=== PATIENT | female | born 1940 | race Caucasian/White ===

== ENCOUNTER → 2018-03-12 | Outpatient (CLI) | payer OTHER | LOC: BHFA 14:00 | PROVIDERS: ATTEND Internal Medicine Cardiovascular Disease | DX: R07.9 Chest pain, unspecified (principal) | CPT/HCPCS: 78452; 93017; A9500 ==

== ENCOUNTER → 2018-03-21 | Outpatient (CLI) | payer OTHER | LOC: FIMAGING 14:40 | PROVIDERS: ATTEND Internal Medicine Geriatric Medicine | DX: Z12.31 Encounter for screening mammogram for malignant neoplasm of breast (principal) ==

== ENCOUNTER 2018-05-28 23:19 | Emergency (ER) | payer OTHER ==
--- NOTE | 2018-05-28 23:54 | EDPHY ---
H & P Stated Complaint: c/o intermittent chest l arm pain x 2 months Time Seen by Provider: 05/28/18 23:28 HPI/ROS: CHIEF COMPLAINT: Episode of chest discomfort along with nausea and impending doom HISTORY OF PRESENT ILLNESS: This is a 78-year-old female whose had intermittent pains of an achy like quality in the left chest underneath the breast for the last 3 months. On occasions it will also radiate to the left scapula, though that is far less common. In the last month she has noted no change in her usual exercise tolerance. She was seen by her PCP for this discomfort to some 2 months ago at which time a stress test was performed. It appears to be a nuclear stress test by both the patient's description and the notation in the records of a nuclear stress test being performed on March 13. However I am unable to get the information from that. Likewise I am unable to look at an old EKG. She does recall running on the treadmill rather than having an injection. She met with her physician and was told that if the discomfort occurred with exertion she should be notified. That was not the case until bud. She reports that she was on her elliptical at about 5:30 p.m. And by 6:00 p.m. When she was just about to stop as per her schedule, she has had a sense of much more severe pain, by far and away the worst, into the left shoulder blade as well as the left upper chest without radiation. There is no involvement of the arm or jaw or mid scapular - it was only in the left scapula. While there is no diaphoresis there was a sense of impending doom and nausea. The symptoms subsided over the next hour to 2. She finally decided to come here to get evaluated. At this point time she is feeling asymptomatic, except for the left upper chest ache that she has been dealing with on and more or less and every other day routine for the last 4 months. P: Achiness to the left chest and into the scapula, precipitated by exercise on the elliptical Q: Achiness R: Left upper chest radiating to the left scapula S: Moderate to severe T: Onset today at 5:30 p.m. with resolution over the next hour to 2 - she did not take any aspirin. Cardiovascular risk factors include: Diabetes-hemoglobin A1c was 6.6 recently, she is to have a visit to start treatment this next week Cholesterol is 230-she has been in the past chosen to decline statins Hypertension-evidently while on lisinopril her blood pressure was "normal". Thus a discussion with her PCP as to whether she needs any treatment. However she has noted herself that her home testing is 130-140 systolic. PE risk factors include age. She has never had a DVT or PE before. No recent surgery. No family history of hypercoagulable syndromes. This pain is nonpleuritic. Aortic dissection risk factors: She does not have any known aortic valve disease nor collagen vascular disease nor family history of same. REVIEW OF SYSTEMS: Constitutional: No fever, no chills. There is no diaphoresis Eyes: No discharge No diplopia ENT: No sore throat. Cardiovascular: See above. Respiratory: No cough, shortness of breath, or wheezing. Gastrointestinal: While there was nausea, she did not vomit. She did not notice any abdominal pain or diarrhea Genitourinary: No hematuria or frequency. Musculoskeletal: No back pain. Skin: No rashes. Neurological: No headache. A 10 system review of systems was performed and is negative except for the noted findings in the HPI. Source: Patient Exam Limitations: No limitations - Personal History Current Tetanus Diphtheria and Acellular Pertussis (TDAP): No - Medical/Surgical History Hx Asthma: No Hx Chronic Respiratory Disease: No Hx Diabetes: No Hx Cardiac Disease: No Hx Renal Disease: No Hx Cirrhosis: No Hx Alcoholism: No Hx HIV/AIDS: No Hx Splenectomy or Spleen Trauma: No Other PMH: Hypertension-previously on lisinopril. Elevated cholesterol - declines statins. Diabetes-recent A1c was 6.6, to start treatment next week - Social History Smoking Status: Never smoked Alcohol Use: None Drug Use: None - Physical Exam Exam: General Appearance: Alert, no distress. Afebrile. Normal phonation. No respiratory distress. Eyes: Pupils equal and round no pallor or injection. No icterus ENT, Mouth: Mucous membranes moist Pharynx without erythema or exudate. TM Clear. Neck: No adenopathy. Supple. No JVD. Trachea in midline. Respiratory: There are no retractions, lungs are clear to auscultation. Chest wall: Nontender to palpation. No crepitus. Cardiovascular: Regular rate and rhythm. No murmur Abdomen: Soft and nontender, no masses, bowel sounds normal. Neurological: Ox3. No motor weakness. Sensation intact. Gait nl. Skin: Warm and dry, no rashes. Musculoskeletal: No joint swelling. Extremities: No edema. Homans sign negative. No cords. Psychiatric: Normal affect. Patient is oriented X 3. There is no agitation Constitutional: Initial Vital Signs Temperature (C) 36.3 C 05/28/18 23:23 Heart Rate 71 05/28/18 23:23 Respiratory Rate 19 05/28/18 23:23 Blood Pressure 197/89 H 05/28/18 23:23 O2 Sat (%) 96 05/28/18 23:23 O2 Delivery Mode Room Air Allergies/Adverse Reactions: No Known Allergies Allergy (Unverified 05/28/18 23:22) Home Medications: Medication Instructions Recorded Lisinopril 05/28/18 Medical Decision Making - Diagnostics EKG Interpretation: EKG: Interpreted by me contemporaneously. Rhythm: Normal sinus rhythm. Heart rate 71 QTc 418 QRS: normal, borderline late transition in V5 STT segment: normal T Waves: Normal Q waves none Summary: Normal Ekg Imaging Results: Chest x-ray: Two view chest. Interpreted by [me, contemporaneously]. Films [viewed] by me on the PACS system. Normal mediastinum. Normal lung rivera. No effusions. Normal chest. No cardiomegaly Imaging: I viewed and interpreted images myself ED Course/Re-evaluation: After the initial interview was clear that her prominentory symptoms of nausea with pain to the scapula as well as upper left chest and a sense of impending doom have resolved. She was back to her baseline of the problematic left upper chest discomfort this been going on for 4 months. Vis-a-vis the new symptoms that had been a change in the pattern have cleared. Patient was placed on the heart monitor, blood pressure improved spontaneously as she had taken dose of the lisinopril at home and she was given aspirin 324 mg chewable. Heart score was 6. However, I was unable to obtain a copy of the stress test however it appears to been a nuclear stress test as there is a nuclear order by a senior finance manager on March 13. Thereby, case was discussed with the hospitalist and arrange for hospital admission to the PCU at [facility] on observation status. However, I met with the patient explained the need for hospitalization in view of the change in symptomatology and the exertional component. She has been warned about the exertional component as it is from her family physician in the [facility]st place. However she does not plan to stay, in a polite manner. She would much prefer to go home and arrange follow-up. Given the seriousness of her symptoms and the sense of impending doom that she explains, I did advise against that, and outlined potential complications of my ensue. She will have to sign out AMA. However she continues to maintain that she would like to arranged for outpatient workup, though would be willing to stay for the 3 hr troponin repeat. Other laboratory studies included: Troponin 0.01 Normal electrolytes, creatinine 0.8 Normal LFTs Normal WBC No anemia. In fact polycythemia with a hemoglobin 19. Old charts reviewed and her most recent CBC available in our system was from 2012. Perhaps there is an element of hemoconcentration as a BUN to creatinine ratio was 20/0.8 as well. Ultimately the second 3 hours Troponin was indeed negative. Revusuted with her and indeed she still does not want admission. Differential Diagnosis: Differential diagnosis includes but is not limited to the following: ACS, myocardial infarction, pneumothorax, pleurisy, pulmonary embolus, CHF, Pneumonia, bronchospasm, Asthma, anxiety, muscle strain. - Data Points Laboratory Results: 05/29/18 05/28/18 00:12 23:31 POC Sodium 144 mEq/L mEq/L (135-145) POC Potassium 3.4 mEq/L mEq/L (3.3-5.0) POC Chloride 107.0 mEq/L mEq/L (97-110) POC Total CO2 24 mEq/L mEq/L (22-31) POC BUN 20 mg/dL mg/dL (7-23) POC Creatinine 0.8 mg/dL mg/dL (0.6-1.0) POC Glucose 126 mg/dL H mg/dL (70-100) POC Calcium 10.0 mg/dL mg/dL (8.5-10.4) POC Total Bilirubin 0.6 mg/dL mg/dL (0.1-1.4) POC AST 32 IU/L IU/L (14-46) POC ALT 22 IU/L IU/L (9-52) POC Alk Phosphatase 67 IU/L IU/L (38-126) POC Troponin I 0.00 ng/mL ng/mL (0.00-0.08) POC Total Protein 7.8 g/dL g/dL (6.3-8.2) POC Albumin 4.4 g/dL g/dL (3.5-5.0) Medications Given: Discontinued Medications Aspirin (Aspirin) 324 mg PO EDNOW ONE Stop: 05/28/18 23:56 Last Admin: 05/28/18 23:59 Dose: 324 mg Point of Care Test Results: CBC CBC Collection Date 05/29/18 CBC Collection Time 23:28 WBC 5.39 RBC 6.25 HGB 19.0 HCT 57.1 PLT 118 Neut # 2.85 Neut 52.8 LYMPH # 2.09 LYMPH 38.8 MCV 91.4 Chemistry 05/29/18 05/28/18 00:12 23:31 POC Sodium 144 mEq/L mEq/L (135-145) POC Potassium 3.4 mEq/L mEq/L (3.3-5.0) POC Chloride 107.0 mEq/L mEq/L (97-110) POC Total CO2 24 mEq/L mEq/L (22-31) POC BUN 20 mg/dL mg/dL (7-23) POC Creatinine 0.8 mg/dL mg/dL (0.6-1.0) POC Glucose 126 mg/dL H mg/dL (70-100) POC Calcium 10.0 mg/dL mg/dL (8.5-10.4) POC Total Bilirubin 0.6 mg/dL mg/dL (0.1-1.4) POC AST 32 IU/L IU/L (14-46) POC ALT 22 IU/L IU/L (9-52) POC Alk Phosphatase 67 IU/L IU/L (38-126) POC Troponin I 0.00 ng/mL ng/mL (0.00-0.08) POC Total Protein 7.8 g/dL g/dL (6.3-8.2) POC Albumin 4.4 g/dL g/dL (3.5-5.0) Departure - Departure Disposition: Against Medical Advice Clinical Impression: Acute coronary syndrome Chest pain Qualifiers: Chest pain type: precordial pain Qualified Code(s): R07.2 - Precordial pain Condition: Fair
[2018-05-28] MEDS ORDERED: ASPIRIN 81 MG CHEWABLE TAB PO ONE (23:55)
--- NOTE | 2018-05-29 01:02 | CPEKG ---
Test Reason : OPEN Blood Pressure : / mmHG Vent. Rate : 071 BPM Atrial Rate : 071 BPM P-R Int : 201 ms QRS Dur : 110 ms QT Int : 395 ms P-R-T Axes : 073 -13 076 degrees QTc Int : 430 ms Sinus rhythm Confirmed by Alex Rosario ([id number]) on 05/29/2018 1:01:41 AM Referred By: PHYSICIAN ED Confirmed By:Alex Rosario
[2018-05-29 02:22] VITALS: BP 123/68
--- NOTE | 2018-05-29 03:26 | CPEKG ---
Test Reason : OPEN Blood Pressure : / mmHG Vent. Rate : 057 BPM Atrial Rate : 057 BPM P-R Int : 206 ms QRS Dur : 106 ms QT Int : 438 ms P-R-T Axes : 058 -25 057 degrees QTc Int : 427 ms Sinus rhythm Borderline left axis deviation Confirmed by Alex Rosario ([id number]) on 05/29/2018 3:25:56 AM Referred By: Holli Carvalho Confirmed By:Alex Rosario
== END 2018-05-29 03:00 | disposition left against medical advice (07) ==
LOC: CED 23:19 → UNDOADMOB 05-29 00:59 → CEDHOLD 05-29 00:59
DX: I24.9 Acute ischemic heart disease, unspecified (principal); R07.2 Precordial pain
CPT/HCPCS: 71046-PO; 80053-ER; 84484-ER

== ENCOUNTER → 2018-07-07 | Outpatient (CLI) | payer OTHER | LOC: BHLMT 13:15 | PROVIDERS: ATTEND Internal Medicine Cardiovascular Disease | DX: R07.9 Chest pain, unspecified (principal); I10 Essential (primary) hypertension | CPT/HCPCS: 93306-PO ==